=== PATIENT | female | born 1985 | race Caucasian/White ===

== ENCOUNTER 2021-03-23 16:01 | Emergency (ER) | payer OTHER ==
[~2021-03-23] VITALS: Ht 162.6 cm; Wt 217.7 kg
[~2021-03-23 16:01] MED LIST: ALLO300T28 PO; IBUP-974 PO; PREN-385 PO; [UNRECOGNIZED DRUG - REMARK]
[2021-03-23 16:04] VITALS: BP 158/74
--- NOTE | 2021-03-23 17:02 | NUR ---
BIB SON C/O LEFT TOOTH/ JAW/TONGUE PAIN X 4 MONTHS. PMH: ASTHMA, OBESITY
[2021-03-23] MEDS ORDERED: ACET-10509 PO (17:22)
[2021-03-23] MEDS ORDERED: NAPR-54 PO (17:22)
[2021-03-23] MEDS ORDERED: CLIN300C2 PO (17:22)
--- NOTE | 2021-03-23 17:42 | NUR ---
Patient discharged with v/s stable. Written and verbal after care instructions given and explained. Patient alert, oriented and verbalized understanding of instructions. Wheel Chair Assisted with to car. All questions addressed prior to discharge. ID band removed. Patient advised to follow up with PMD. Rx of NAPROSYN, CLINDAMYCIN, ACETAMINOPHEN given. Patient educated on indication of medication including possible reaction and side effects. Opportunity to ask questions provided and answered.
[2021-03-23 17:43] VITALS: BP 158/74
== END 2021-03-23 17:42 | disposition home or self-care (01) ==
LOC: MED 16:01
DX: K08.89 Other specified disorders of teeth and supporting structures (principal); F17.200 Nicotine dependence, unspecified, uncomplicated; Z88.0 Allergy status to penicillin
CPT/HCPCS: 99283

== ENCOUNTER 2021-05-08 16:12 | Emergency (ER) | payer OTHER ==
[~2021-05-08] VITALS: Ht 160 cm; Wt 227.7 kg
[~2021-05-08 16:12] MED LIST changes: +ACET-10509 PO; +CLIN300C2 PO; +NAPR-54 PO
[2021-05-08 16:29] VITALS: BP 134/94
--- NOTE | 2021-05-08 16:33 | NUR ---
PT W/C ASSISTED TO ER BED 4.
--- NOTE | 2021-05-08 16:39 | NUR ---
DR. KANG WITH PT IN ER BED 4 FOR FURTHER EVALUATION.
--- NOTE | 2021-05-08 16:48 | NUR ---
35 Y/O FEMALE W/C ASSISTED C/O RIGHT BREAST PAIN 09/03 DESCRIBES BURNING AND ACHING X3DAYS. PT STATES SHE NOTICED A "LUMP" ON HER BREAST, STATING IT CAME TO A HEAD AND POPPED TODAY, STATING PUS AND BLOOD CAME OUT. PT REPORTS TAKING IBUPROFEN WITH MILD RELIEF. STATES FEVER AT HOME 103 WITH CHILLS, STATES +N/-V. DENIES PMH ALLERGIES: PCN
[2021-05-08] MEDS ORDERED: CLIN300C2 PO (16:53)
[2021-05-08 17:07] VITALS: BP 134/94
--- NOTE | 2021-05-08 17:07 | NUR ---
Patient discharged with v/s stable. Written and verbal after care instructions given FOR CELLULITIS and explained. Patient alert, oriented and verbalized understanding of instructions. Wheel Chair Assisted with to car. All questions addressed prior to discharge. ID band removed. Patient advised to follow up with PMD. Rx of CLINDAMYCIN given. Patient educated on indication of medication including possible reaction and side effects. Opportunity to ask questions provided and answered.
== END 2021-05-08 17:07 | disposition home or self-care (01) ==
LOC: MED 16:12
DX: L53.8 Other specified erythematous conditions (principal); N64.4 Mastodynia
CPT/HCPCS: 99283

== ENCOUNTER 2022-08-13 19:09 | Emergency (ER) | payer OTHER ==
[~2022-08-13] VITALS: Ht 170.2 cm; Wt 216.9 kg
[2022-08-13 19:14] VITALS: BP 154/104
--- NOTE | 2022-08-13 19:30 | NUR ---
Patient assisted via wheelchair to bed 9. Family member at bedside.
[2022-08-13 20:23] LABS: BASOPHILS # (AUTO) 0.1 K/uL (0.00-0.22); BASOPHILS % (AUTO) 0.7 % (0.0-2.0); EOSINOPHILS # (AUTO) 0.5 K/uL (0-0.4); EOSINOPHILS % (AUTO) 4.9 % (0.0-4.0); HEMATOCRIT 45.1 % (36-48); HEMOGLOBIN 15.1 g/dL (12.0-16.0); LYMPHOCYTES # (AUTO) 2.3 K/uL (2.5-16.5); LYMPHOCYTES % (AUTO) 21.3 % (20.5-51.1); MEAN CORPUSCULAR HEMOGLOBIN 29 pg (27-31); MEAN CORPUSCULAR HGB CONC 33 g/dL (33-37); MEAN CORPUSCULAR VOLUME 85.2 fL (80-94); MONOCYTES # (AUTO) 0.7 K/uL (0.8-1.0); MONOCYTES % (AUTO) 6.4 % (1.7-9.3); NEUTROPHILS # (AUTO) 7.1 K/uL (1.8-7.7); NEUTROPHILS % (AUTO) 66.7 % (42.2-75.2); PLATELET COUNT (AUTO) 263 K/uL (140-450); RED BLOOD CELL COUNT(AUTO) 5.29 MIL/uL (4.20-5.40); RED CELL DISTRIBUTION WIDTH 13.8 % (11.6-13.7); WHITE BLOOD COUNT (AUTO) 10.6 K/uL (4.8-10.8)
[2022-08-13 20:47] LABS: ALBUMIN 3.4 g/dL (3.4-5.0); ANION GAP 18.1 (8-16); CARBON DIOXIDE 21.9 mmol/L (21-32); CREATININE 0.7 mg/dL (0.6-1.3); TOTAL BILIRUBIN 0.6 mg/dL (0.0-1.0)
--- NOTE | 2022-08-13 22:03 | NUR ---
[facility] TRANSPORT AT BEDSIDE.
[2022-08-13] MEDS ORDERED: VALA1TAB40 PO (22:07)
[2022-08-13] MEDS ORDERED: PRED20TA5 PO (22:07)
[2022-08-13] MEDS ORDERED: MINE3.5O30 OP (22:07)
--- NOTE | 2022-08-13 22:10 | NUR ---
PT TAKEN BY [facility] TRANSPORT TO [facility] FOR WAIT AND RETURN
--- NOTE | 2022-08-13 23:25 | NUR ---
PT RETURN FROM [facility] TO ER BED 9 VIA [facility]
[2022-08-14] MEDS ORDERED: KETOROLAC 30 MG/ML VIAL IVP ONE (00:10)
--- NOTE | 2022-08-14 00:52 | NUR ---
[facility] AT BEDSIDE
[2022-08-14 01:27] VITALS: BP 139/89
--- NOTE | 2022-08-14 01:57 | NUR ---
IV removed, catheter intact and site benign. Applied folded 4x4 gauze and tape to stop bleeding.
--- NOTE | 2022-08-14 02:02 | NUR ---
Note charleneone in EDM - 08/14/22 at 0323 by [email or web address] Patient discharged. Written and verbal after care instructions given and explained. Patient alert, oriented and verbalized understanding of instructions. Ambulatory with steady gait. All questions addressed prior to discharge. ID band removed. Patient advised to follow up with PMD. Rx of Artificial eye Lub 15-83% Oint, Deltasone, and Valacyclovir given. Patient educated on indication of medication including possible reaction and side effects. Opportunity to ask questions provided and answered.
--- NOTE | 2022-08-14 02:02 | NUR ---
Patient discharged. Written and verbal after care instructions given and explained. Patient alert, oriented and verbalized understanding of instructions. W/C assisted to car. All questions addressed prior to discharge. ID band removed. Patient advised to follow up with PMD. Rx of Artificial eye Lub 15-83% Oint, Deltasone, and Valacyclovir given. Patient educated on indication of medication including possible reaction and side effects. Opportunity to ask questions provided and answered.
== END 2022-08-14 02:02 | disposition home or self-care (01) ==
LOC: MED 19:09
DX: G51.0 Bell's palsy (principal); M79.602 Pain in left arm; Z88.0 Allergy status to penicillin; Z79.899 Other long term (current) drug therapy
CPT/HCPCS: 36415; 80053; 85025; 85379; 93971; 96374; 99285; J1885; Q0092